=== PATIENT | female | born 1975 | race Caucasian/White ===

== ENCOUNTER → 2021-04-28 | Outpatient (CLI) | payer OTHER ==
--- NOTE | 2021-05-14 08:51 | MM ---
Reason for exam: additional evaluation requested from prior study. Last mammogram was performed 1 year ago. History: Family history of breast cancer in maternal grandmother at age 70. Physical Findings: Nurse did not find any significant physical abnormalities on exam. MG 3D Diag Mammo W/Cad TOMAS Bilateral CC and MLO view(s) were taken. Prior study comparison: April 20, 2020, mammogram, performed at [facility]. The breast tissue is heterogeneously dense. This may lower the sensitivity of mammography. Bilateral microcalcifications appears to have increased from 2020. These may be regional and diffuse. Further magnification views recommended to assess morphology. These results were verbally communicated with the patient and result sheet given to the patient on 05/13/21. ASSESSMENT: Incomplete: need additional imaging evaluation, BI-RAD 0 RECOMMENDATION: Special view mammogram of both breasts.
--- NOTE | 2021-05-14 08:59 | USB ---
Reason for exam: additional evaluation requested from abnormal screening. History: Family history of breast cancer in maternal grandmother at age 70. US Breast RT Right complete breast ultrasound includes all four quadrants, the retroareolar region and axilla. Finding demonstrates a 0.4 x 0.4 x 0.2cm septation, cystic lesion at 7 o'clock, (cyst cluster versus complex cyst) previous 10 o'clock mixed area no longer seen. These results were verbally communicated with the patient and result sheet given to the patient on 05/13/21. ASSESSMENT: Probably benign, BI-RAD 3 RECOMMENDATION: Ultrasound of the right breast in 6 months. (7 o'clock) Manage on a clinical basis with regard to any suspicious palpable areas.
== END | disposition home or self-care (01) ==
LOC: RADMAMWWP 08:46
PROVIDERS: ATTEND Obstetrics & Gynecology
DX: N60.01 Solitary cyst of right breast (principal); R92.1 Mammographic calcification found on diagnostic imaging of breast; Z80.3 Family history of malignant neoplasm of breast
CPT/HCPCS: 77062; 77066

== ENCOUNTER → 2021-05-26 | Outpatient (CLI) | payer OTHER ==
--- NOTE | 2021-05-26 09:48 | MM ---
Reason for exam: additional evaluation requested from prior study. Last mammogram was performed 1 month ago. History: Family history of breast cancer in maternal grandmother at age 70. Physical Findings: See diagnostic exam 04/28/21. MG Follow Up Bilat No Charge Bilateral CC with magnification, LM with magnification, and LM view(s) were taken. Prior study comparison: April 28, 2021, bilateral MG 3d diag mammo w/cad TOMAS. April 20, 2020, mammogram, performed at [facility]. The breast tissue is heterogeneously dense. This may lower the sensitivity of mammography. Finding: There are intermediate concern, suspicious, fine, grouped/clustered calcifications in the upper inner quadrant, middle position of the left breast. These results were verbally communicated with the patient and result sheet given to the patient on 05/26/21. ASSESSMENT: Suspicious, BI-RAD 4 RECOMMENDATION: Stereotactic core biopsy of the left breast. Follow-up diagnostic mammogram of the right breast in 6 months. Patient requested to speak with [facility]EE English before scheduling any biopsy. PRELIMINARY REPORT CALLED AND FAXED TO DR. RESENDIZ ON 05/26/21.
== END | disposition home or self-care (01) ==
LOC: RADMAMWWP 08:14
PROVIDERS: ATTEND Obstetrics & Gynecology
DX: R92.1 Mammographic calcification found on diagnostic imaging of breast (principal); Z80.3 Family history of malignant neoplasm of breast
CPT/HCPCS: 77066

== ENCOUNTER → 2021-12-06 | Outpatient (CLI) | payer OTHER ==
--- NOTE | 2021-12-06 14:02 | MM ---
Reason for Exam: Follow-up at short interval from prior study. Last screening mammogram was performed 7 month(s) ago. Patient History: Menarche at age 14. First Full-Term at age 30. 07/28/2021, MG discontinued stereo core LT on the left side. Maternal grandmother had breast cancer, age 70. Paternal aunt had breast cancer, age 65. Risk Values: Debbie 5 year model risk: 0.9%. NCI Lifetime model risk: 10.7%. Tissue Density: The breast tissue is extremely dense which could obscure a lesion on mammography. Findings: Analyzed By CAD. Scattered diffuse benign-appearing calcifications bilaterally are redemonstrated. Benign-appearing bilateral axillary lymph nodes again seen. No suspicious new distortion or worrisome group of microcalcifications in either breast. Overall Assessment: Benign, BI-RAD 2 Management: Screening Mammogram of both breasts in 1 year. Some advise bilateral breast ultrasound surveillance in patients with background dense tissue. Results were given to the patient verbally at the time of exam. Electronically signed and approved by: Salomon Ryan M.D.
== END | disposition home or self-care (01) ==
LOC: RADMAMWWP 11-16 07:59
PROVIDERS: ATTEND Obstetrics & Gynecology
DX: R92.8 Other abnormal and inconclusive findings on diagnostic imaging of breast (principal); Z80.3 Family history of malignant neoplasm of breast
CPT/HCPCS: 77062; 77066

== ENCOUNTER → 2023-04-25 | Outpatient (CLI) | payer OTHER ==
--- NOTE | 2023-04-26 08:40 | MM ---
Reason for Exam: Screening (asymptomatic). Last mammogram was performed 1 year(s) and 4 month(s) ago. Patient History: Menarche at age 14. First Full-Term at age 30. Premenopausal. Patient has history of breast feeding. 07/28/2021, MG discontinued stereo core LT on the left side. Maternal grandmother had breast cancer, age 70. Last menstrual period: 04/05/2023 Risk Values: Debbie 5 year model risk: 0.9%. NCI Lifetime model risk: 10.6%. Prior Study Comparison: 04/20/2020 Screening Mammogram, [facility]. 04/28/2021 Bilateral Diagnostic Mammogram, [facility]. 04/28/2021 Right Diagnostic Ultrasound, [facility]. 05/26/2021 Bilateral Diagnostic Mammogram, [facility]. 12/06/2021 Bilateral MG 3D diag mammo w/cad TOMAS, [facility]. Tissue Density: The breast tissue is extremely dense which could obscure a lesion on mammography. Findings: Analyzed By CAD. There is no suspicious group of microcalcifications or new suspicious mass. Benign-appearing calcifications bilaterally. Overall Assessment: Benign, BI-RAD 2 Management: Screening Mammogram of both breasts in [address] [facility] will attempt to contact patient to return for supplemental views and ultrasound if indicated. Patient should continue monthly self-breast exams. A clinical breast exam by your physician is recommended on an annual basis. This exam should not preclude additional follow-up of suspicious palpable abnormalities. Note on Debbie scores and lifetime risk: 1. A Debbie score greater than 3% is considered moderate risk. If this is the case, consider specialist referral to assess eligibility for a risk reducing agent. 2. If overall lifetime risk for the development of breast cancer is 20% or higher, the patient may qualify for future screening with alternating mammogram and breast MRI. Electronically signed and approved by: Zbigniew Combs DO
== END | disposition home or self-care (01) ==
LOC: RADMAMWWP 07:31
PROVIDERS: ATTEND Obstetrics & Gynecology
DX: Z12.31 Encounter for screening mammogram for malignant neoplasm of breast (principal); Z80.3 Family history of malignant neoplasm of breast
CPT/HCPCS: 77063; 77067

== ENCOUNTER → 2024-04-26 | Outpatient (CLI) | payer OTHER ==
--- NOTE | 2024-04-29 09:00 | MM ---
Reason for Exam: Screening (asymptomatic). Last screening mammogram was performed 12 month(s) ago. Patient History: Menarche at age 14. First Full-Term at age 30. Left ovary removed at age 47. Right ovary removed at age 47. Hysterectomy at age 47. Postmenopausal. Patient has history of breast feeding. 07/28/2021, MG discontinued stereo core LT on the left side. Maternal grandmother had breast cancer, age 70. Risk Values: Debbie 5 year model risk: 0.9%. NCI Lifetime model risk: 10.5%. Prior Study Comparison: 05/26/2021 Bilateral Diagnostic Mammogram, [facility]. 12/06/2021 Bilateral MG 3D diag mammo w/cad TOMAS, [facility]. 04/25/2023 Bilateral MG 3D screening mammo w/cad, [facility]. Tissue Density: The breasts are heterogeneously dense, which may obscure small masses. Findings: Analyzed By CAD. Right breast: There is no suspicious group of microcalcifications or new suspicious mass. Left breast: Increasing calcifications left breast MLO view slightly inferior 3.6 cm from the nipple. Overall Assessment: Incomplete: need additional imaging evaluation, BI-RAD 0 Management: Diagnostic Mammogram of the left breast. [facility] will attempt to contact patient to return for supplemental views and ultrasound if indicated. Patient should continue monthly self-breast exams. A clinical breast exam by your physician is recommended on an annual basis. This exam should not preclude additional follow-up of suspicious palpable abnormalities. Note on Debbie scores and lifetime risk: 1. A Debbie score greater than 3% is considered moderate risk. If this is the case, consider specialist referral to assess eligibility for a risk reducing agent. 2. If overall lifetime risk for the development of breast cancer is 20% or higher, the patient may qualify for future screening with alternating mammogram and breast MRI. [facility], , 04/29/2024 8:56 AM. Electronically signed and approved by: Zbigniew Combs DO
== END | disposition home or self-care (01) ==
LOC: RADMAMWWP 12:29
PROVIDERS: ATTEND Obstetrics & Gynecology
DX: Z12.31 Encounter for screening mammogram for malignant neoplasm of breast (principal); Z78.0 Asymptomatic menopausal state; Z80.3 Family history of malignant neoplasm of breast; Z90.722 Acquired absence of ovaries, bilateral; R92.333 Mammographic heterogeneous density, bilateral breasts
CPT/HCPCS: 77063; 77067

== ENCOUNTER → 2024-05-06 | Outpatient (CLI) | payer OTHER ==
--- NOTE | 2024-05-06 14:23 | MM ---
Reason for Exam: Additional evaluation requested from abnormal screening. Last screening mammogram was performed less than 1 month ago. Patient History: Menarche at age 14. First Full-Term at age 30. Left ovary removed at age 47. Right ovary removed at age 47. Hysterectomy at age 47. Postmenopausal. Patient has history of breast feeding. 07/28/2021, MG discontinued stereo core LT on the left side. Maternal grandmother had breast cancer, age 70. Risk Values: Debbie 5 year model risk: 0.9%. NCI Lifetime model risk: 10.5%. Prior Study Comparison: 12/06/2021 Bilateral MG 3D diag mammo w/cad TOMAS, [facility]. 04/25/2023 Bilateral MG 3D screening mammo w/cad, [facility]. 04/26/2024 Bilateral MG 3D screening mammo w/cad, [facility]. Tissue Density: Left: The breasts are heterogeneously dense, which may obscure small masses. Findings: Analyzed By CAD. The pattern is symmetrical. Multiple punctate calcifications at the lower aspect left breast. These appear to be stable from 2020. Precautionary follow-up is recommended. Overall Assessment: Probably benign, BI-RAD 3 Management: Diagnostic Mammogram of the left breast in 6 months. A negative mammogram report should not preclude additional follow up of suspicious palpable abnormalities. Patient should continue monthly self breast exam. A clinical breast exam by your physician is recommended on an annual basis and results should be correlated with mammographic findings. Note on Debbie scores and lifetime risk: 1. A Debbie score greater than 3% is considered moderate risk. If this is the case, consider specialist referral to assess eligibility for a risk reducing agent. 2. If overall lifetime risk for the development of breast cancer is 20% or higher, the patient may qualify for future screening with alternating mammogram and breast MRI. [facility], , 05/06/2024 2:20 PM. Electronically signed and approved by: Howard Olsen D.O. Radiologis
== END | disposition home or self-care (01) ==
LOC: RADMAMWWP 13:24
PROVIDERS: ATTEND Obstetrics & Gynecology
DX: R92.8 Other abnormal and inconclusive findings on diagnostic imaging of breast (principal); Z90.722 Acquired absence of ovaries, bilateral; Z78.0 Asymptomatic menopausal state; Z80.3 Family history of malignant neoplasm of breast; R92.332 Mammographic heterogeneous density, left breast
CPT/HCPCS: 77061; 77065

== ENCOUNTER → 2024-11-05 | Outpatient (CLI) | payer OTHER ==
--- NOTE | 2024-11-05 10:12 | MM ---
Reason for Exam: Follow-up at short interval from prior study. Last screening mammogram was performed 7 month(s) ago. Patient History: Menarche at age 14. First Full-Term at age 30. Left ovary removed at age 47. Right ovary removed at age 47. Hysterectomy at age 47. Postmenopausal. Patient has history of breast feeding. Patient used Hormonal Contraceptives for 1 year. 07/28/2021, MG discontinued stereo core LT on the left side. Maternal grandmother had breast cancer, age 70. Risk Values: Debbie 5 year model risk: 1.0%. NCI Lifetime model risk: 10.3%. Prior Study Comparison: 04/25/2023 Bilateral MG 3D screening mammo w/cad, [facility]. 04/26/2024 Bilateral MG 3D screening mammo w/cad, [facility]. 05/06/2024 Left MG 3D work up w/cad LT, [facility]. Tissue Density: Left: The breasts are heterogeneously dense, which may obscure small masses. Findings: Analyzed By CAD. Persistent scattered and loosely grouped tiny benign-appearing round calcifications in the left breast. No new suspicious group of microcalcifications. Overall Assessment: Benign, BI-RAD 2 Management: Screening Mammogram of both breasts in 6 months. Back on bilateral annual schedule. Results were given to the patient verbally at the time of exam. Patient should continue monthly self-breast exams. A clinical breast exam by your physician is recommended on an annual basis. This exam should not preclude additional follow-up of suspicious palpable abnormalities. Note on Debbie scores and lifetime risk: 1. A Debbie score greater than 3% is considered moderate risk. If this is the case, consider specialist referral to assess eligibility for a risk reducing agent. 2. If overall lifetime risk for the development of breast cancer is 20% or higher, the patient may qualify for future screening with alternating mammogram and breast MRI. [facility], , 11/05/2024 10:09 AM. Electronically signed and approved by: Salomon Ryan M.D.
== END | disposition home or self-care (01) ==
LOC: RADMAMWWP 09:07
PROVIDERS: ATTEND Surgery
DX: R92.8 Other abnormal and inconclusive findings on diagnostic imaging of breast (principal); R92.332 Mammographic heterogeneous density, left breast; Z78.0 Asymptomatic menopausal state; Z92.0 Personal history of contraception; Z80.3 Family history of malignant neoplasm of breast
CPT/HCPCS: 77061; 77065